=== PATIENT | female | born 1940 | race Asian ===

== ENCOUNTER 2017-09-20 01:31 | Inpatient (IN) | payer OTHER ==
[2017-09-20 02:12] LABS: WHITE BLOOD COUNT 8.3 10^3/ul (4.8-10.8)
[2017-09-20 02:12] LABS: ADD MAN DIFF? NO; BASOPHIL # 0.1 10^3/ul (0.0-0.1); EOSINOPHILS # 0.3 10^3/ul (0.0-0.5); EOSINOPHILS % 3.6 % (0.0-7.0); HEMOGLOBIN 10.6 g/dl (12.0-16.0); LYMPHOCYTES % 12.1 % (15.0-51.0); MEAN CORPUSCULAR HEMOGLOBIN 30.4 pg (29.0-33.0); MEAN CORPUSCULAR HGB CONC 30.3 g/dl (32.0-37.0); MEAN CORPUSCULAR VOLUME 100.3 fl (82.0-101.0); MONOCYTE # 0.8 10^3/ul (0.3-0.9); MONOCYTES % 9.6 % (0.0-11.0); NEUTROPHIL # 6.1 10^3/ul (1.6-7.5); NEUTROPHILS % 73.3 % (39.0-77.0); PLATELET COUNT 265 10^3/UL (140-415); RED BLOOD COUNT 3.49 10^6/ul (4.20-5.40); RED CELL DISTRIBUTION WIDTH 16.6 % (11.5-14.5)
[2017-09-20 02:32] LABS: ANION GAP 12 (8-16); BLOOD UREA NITROGEN 22 mg/dl (7-20); CALCIUM 8.4 mg/dl (8.4-10.2); CARBON DIOXIDE 26 mmol/L (21-31); CHLORIDE 108 mmol/L (97-110); CREATININE 1.11 mg/dl (0.44-1.00); GLUCOSE 129 mg/dl (70-220); POTASSIUM 4.3 mmol/L (3.5-5.1); PROTIME 18.4 Sec (11.9-14.9); PT RATIO 1.4; SODIUM 142 mmol/L (135-144)
[2017-09-20 02:33] LABS: PARTIAL THROMBOPLASTIN TIME 41.2 Sec (25.0-35.0)
[2017-09-20 02:33] LABS: LACTIC ACID 1.3 mmol/L (0.5-2.0)
[2017-09-20 02:42] LABS: B-TYPE NATRIURETIC PEPTIDE 12600 PG/ML (0-450)
[2017-09-20] MEDS: FUROSEMIDE 40 MG INJ IV ×2 (03:15→12:16)
[2017-09-20] MEDS ORDERED: ONDANSETRON 4 MG INJ IV (07:30)
[2017-09-20] MEDS ORDERED: NITROGLYCERIN (SL) 0.4 MG TAB SL (07:30)
[2017-09-20] MEDS ORDERED: NACL 0.9% 3 ML SYG IV (07:30)
[2017-09-20] MEDS ORDERED: ALBUTEROL/IPRATROPIUM (NEB) 3 ML AMP HHN (07:30)
[2017-09-20] MEDS ORDERED: ACETAMINOPHEN 325 MG TAB PO (07:30)
[2017-09-20 07:35] LABS: CREATINE KINASE 59 IU/L (23-200)
[2017-09-20 07:52] LABS: CK INDEX 2.1; CK-MB 1.21 ng/ml (0.0-2.4); TROPONIN-I 0.019 ng/ml (0.000-0.120)
[2017-09-20] MEDS: AMIODARONE 200 MG TAB PO ×3 (08:52→21:23)
[2017-09-20] MEDS: APIXABAN 5 MG TABLET PO ×2 (08:53→21:23)
[2017-09-20] MEDS: MULTIVITAMINS THERAPEUTIC TAB PO (08:53)
[2017-09-20] MEDS: GABAPENTIN 300 MG CAP PO ×2 (08:53→21:23)
[2017-09-20] MEDS: CHOLECALCIFEROL 1,000 UNIT TAB PO ×2 (08:53→21:20)
[2017-09-20 14:58] LABS: CREATINE KINASE 56 IU/L (23-200)
[2017-09-20 15:10] LABS: CK-MB 1.12 ng/ml (0.0-2.4); TROPONIN-I < 0.010 ng/ml (0.000-0.120)
[2017-09-20] MEDS: FUROSEMIDE 20 MG INJ IV (17:35)
[2017-09-20] MEDS ORDERED: FUROSEMIDE 40 MG INJ IV (18:00)
[2017-09-20] MEDS ORDERED: FUROSEMIDE 20 MG INJ IV (18:00)
[2017-09-20] MEDS: LISINOPRIL 5 MG TAB PO (21:20)
[2017-09-20] MEDS: ATORVASTATIN 10 MG TAB PO (21:21)
[2017-09-21] MEDS: FUROSEMIDE 20 MG INJ IV (06:13)
[2017-09-21 06:26] LABS: ADD MAN DIFF? NO
[2017-09-21 06:36] LABS: BASOPHIL # 0.1 10^3/ul (0.0-0.1); EOSINOPHILS # 0.4 10^3/ul (0.0-0.5); EOSINOPHILS % 6.1 % (0.0-7.0); HEMATOCRIT 35.4 % (37.0-47.0); HEMOGLOBIN 11.1 g/dl (12.0-16.0); LYMPHOCYTES # 0.9 10^3/ul (0.8-2.9); LYMPHOCYTES % 13.8 % (15.0-51.0); MEAN CORPUSCULAR HGB CONC 31.4 g/dl (32.0-37.0); MEAN CORPUSCULAR VOLUME 98.9 fl (82.0-101.0); MEAN PLATELET VOLUME 10.8 fl (7.4-10.4); MONOCYTE # 0.7 10^3/ul (0.3-0.9); MONOCYTES % 9.9 % (0.0-11.0); NEUTROPHIL # 4.6 10^3/ul (1.6-7.5); NEUTROPHILS % 69.1 % (39.0-77.0); PLATELET COUNT 235 10^3/UL (140-415); RED BLOOD COUNT 3.58 10^6/ul (4.20-5.40)
[2017-09-21 06:36] LABS: WHITE BLOOD COUNT 6.7 10^3/ul (4.8-10.8)
[2017-09-21 07:14] LABS: HEMOGLOBIN A1C 5.7 % (0-5.9)
[2017-09-21 07:30] LABS: PHOSPHORUS 4.1 mg/dl (2.5-4.9)
[2017-09-21 07:43] LABS: ALANINE AMINOTRANSFERASE 35 IU/L (13-69); ALBUMIN 3.1 g/dl (3.3-4.9); ALBUMIN/GLOBULIN RATIO 1.14; ALKALINE PHOSPHATASE 46 IU/L (42-121); ANION GAP 8 (8-16); ASPARTATE AMINO TRANSFERASE 25 IU/L (15-46); BILIRUBIN,INDIRECT 0.7 mg/dl (0-1.1); BILIRUBIN,TOTAL 0.7 mg/dl (0.2-1.3); BLOOD UREA NITROGEN 25 mg/dl (7-20); CALCIUM 8.2 mg/dl (8.4-10.2); CARBON DIOXIDE 38 mmol/L (21-31); CHLORIDE 99 mmol/L (97-110); CHOLESTEROL 81 mg/dl (100-200); CREATININE 1.35 mg/dl (0.44-1.00); GLUCOSE 89 mg/dl (70-220); HDL CHOLESTEROL 39 mg/dl (33-92); LDL CHOLESTEROL,CALCULATED 34 mg/dl; MAGNESIUM 1.9 mg/dl (1.7-2.5); POTASSIUM 3.5 mmol/L (3.5-5.1); SODIUM 141 mmol/L (135-144); TOTAL PROTEIN 5.8 g/dl (6.1-8.1); TRIGLYCERIDES 42 mg/dl (0-149)
[2017-09-21] MEDS: AMIODARONE 200 MG TAB PO ×3 (08:22→21:34)
[2017-09-21] MEDS: APIXABAN 5 MG TABLET PO ×2 (08:22→21:34)
[2017-09-21] MEDS: LISINOPRIL 5 MG TAB PO ×2 (08:22→21:34)
[2017-09-21] MEDS: CHOLECALCIFEROL 1,000 UNIT TAB PO ×2 (08:22→21:33)
[2017-09-21] MEDS: MULTIVITAMINS THERAPEUTIC TAB PO (08:23)
[2017-09-21] MEDS: GABAPENTIN 300 MG CAP PO ×2 (08:23→21:34)
[2017-09-21 08:33] LABS: FOLATE > 20.0 ng/ml (2.8-20.0)
[2017-09-21] MEDS: ATORVASTATIN 10 MG TAB PO (21:34)
[2017-09-22] MEDS: FUROSEMIDE 40 MG TAB PO (05:21)
[2017-09-22 06:52] LABS: ANION GAP 12 (8-16); BLOOD UREA NITROGEN 27 mg/dl (7-20); CALCIUM 8.7 mg/dl (8.4-10.2); CARBON DIOXIDE 31 mmol/L (21-31); CHLORIDE 103 mmol/L (97-110); CREATININE 1.16 mg/dl (0.44-1.00); GLUCOSE 84 mg/dl (70-220); POTASSIUM 3.9 mmol/L (3.5-5.1); SODIUM 142 mmol/L (135-144)
[2017-09-22 07:39] LABS: MAGNESIUM 2.3 mg/dl (1.7-2.5)
[2017-09-22 07:47] LABS: B-TYPE NATRIURETIC PEPTIDE 3790 PG/ML (0-450)
[2017-09-22] MEDS: AMIODARONE 200 MG TAB PO ×2 (08:12→12:05)
[2017-09-22] MEDS: LISINOPRIL 5 MG TAB PO (08:13)
[2017-09-22] MEDS: GABAPENTIN 300 MG CAP PO (08:13)
[2017-09-22] MEDS: CHOLECALCIFEROL 1,000 UNIT TAB PO (08:13)
[2017-09-22] MEDS: MULTIVITAMINS THERAPEUTIC TAB PO (08:13)
[2017-09-22] MEDS: APIXABAN 5 MG TABLET PO (08:14)
[2017-09-22] MEDS: DIGOXIN 500 MCG INJ IV (11:12)
== END 2017-09-22 15:29 | disposition home or self-care (01) | DRG 291 ==
LOC: E/R 01:31 → 6WM 03:32
DX: I11.0 Hypertensive heart disease with heart failure (principal); J96.00 Acute respiratory failure, unspecified whether with hypoxia or hypercapnia; N17.9 Acute kidney failure, unspecified; I50.23 Acute on chronic systolic (congestive) heart failure; I48.0 Paroxysmal atrial fibrillation; I25.10 Atherosclerotic heart disease of native coronary artery without angina pectoris; I08.1 Rheumatic disorders of both mitral and tricuspid valves; I42.9 Cardiomyopathy, unspecified; Z79.01 Long term (current) use of anticoagulants; Z95.1 Presence of aortocoronary bypass graft
CPT/HCPCS: 36415; 71045; 80048; 80053; 80061; 82550; 82553; 82607; 82746; 83036; 83605; 83735; 83880; 84100; 84443; 84484; 85025; 85610; 85730; 93005; 93306; 96374; 99291-25